=== PATIENT | female | born 1975 | race Caucasian/White ===

== ENCOUNTER → 2018-04-24 | Outpatient (CLI) | payer MEDICAID ==
--- NOTE | 2018-04-25 12:56 | MM ---
Reason for exam: screening (asymptomatic). Last mammogram was performed 2 years and 4 months ago. History: Family history of breast cancer in maternal aunt. Taking hormonal contraceptives for 19 years beginning at age 17. Physical Findings: A clinical breast exam by your physician is recommended on an annual basis and results should be correlated with mammographic findings. MG 3D Screening Mammo W/Cad Bilateral CC and MLO view(s) were taken. Prior study comparison: January 05, 2016, left breast MG work up mamm w CAD LT. December 29, 2015, bilateral MG screening mammo w CAD. The breast tissue is extremely dense which could obscure a lesion on mammography. Superior posterior depth left breast asymmetry overlying the pectoralis muscle on 3D MLO 42/65. ASSESSMENT: Incomplete: need additional imaging evaluation, BI-RAD 0 RECOMMENDATION: Special view mammogram of the left breast. If lesion persists on supplemental views, image directed ultrasound is recommended. [facility] will attempt to contact patient to return for supplemental views and ultrasound if indicated.
== END ==
LOC: RADMAMWWP 07:38
PROVIDERS: ATTEND Obstetrics & Gynecology
DX: Z12.31 Encounter for screening mammogram for malignant neoplasm of breast (principal)
CPT/HCPCS: 77063; 77067

== ENCOUNTER → 2018-04-29 | Outpatient (CLI) | payer MEDICAID ==
--- NOTE | 2018-04-30 08:34 | MM ---
Reason for exam: additional evaluation requested from abnormal screening. Last mammogram was performed less than 1 month ago. History: Family history of breast cancer in maternal aunt. Taking hormonal contraceptives for 19 years beginning at age 17. Physical Findings: Nurse did not find any significant physical abnormalities on exam. MG 3D Work Up W/Cad LT LM and spot compression MLO view(s) were taken of the left breast. Prior study comparison: April 24, 2018, bilateral MG 3d screening mammo w/cad. January 05, 2016, left breast MG work up mamm w CAD LT. Nodularity persists upper outer quadrant left breast, 8.3cm from nipple. These results were verbally communicated with the patient and result sheet given to the patient on 04/29/18. ASSESSMENT: Incomplete: need additional imaging evaluation, BI-RAD 0 RECOMMENDATION: Ultrasound of the left breast.
--- NOTE | 2018-04-30 08:35 | USB ---
Reason for exam: additional evaluation requested from abnormal screening. History: Family history of breast cancer in maternal aunt. Taking hormonal contraceptives for 19 years beginning at age 17. US Breast Workup Limited LT Left limited breast ultrasound including focal area of concern, retroareolar and axilla demonstrates a 0.3 x 0.2 x 0.3cm cystic lesion at 2 o'clock and a 0.4 x 0.3 x 0.5cm mixed lesion at 2 o'clock. These results were verbally communicated with the patient and result sheet given to the patient on 04/29/18. ASSESSMENT: Probably benign, BI-RAD 3 RECOMMENDATION: Follow-up diagnostic mammogram and ultrasound of the left breast in 6 months.
== END ==
LOC: RADMAMWWP 14:48
PROVIDERS: ATTEND Obstetrics & Gynecology
DX: R92.8 Other abnormal and inconclusive findings on diagnostic imaging of breast (principal)
CPT/HCPCS: 77061; 77065

== ENCOUNTER 2018-12-27 19:15 | Emergency (ER) | payer MEDICAID ==
[2018-12-27 19:25] VITALS: BP 156/88; PULSE 68; RESP 20; TEMP 98.6
--- NOTE | 2018-12-27 20:08 | ED ---
General Adult HPI - General Chief complaint: Wound/Laceration Stated complaint: thumb lac Source: patient, RN notes reviewed Mode of arrival: ambulatory Limitations: no limitations - History of Present Illness Initial comments: Chief complaint history of present illness a 43-year-old female presents emergency room with a one half centimeter laceration over the tip of her right thumb. Full range of motion. Last tetanus shot was 5 years ago. No complaint of numbness or tingling - Related Data Home Medications Medication Instructions Recorded Confirmed Escitalopram [Lexapro] 10 mg PO DAILY 12/27/18 12/27/18 Norgestrel-Ethinyl Estradiol 1 tab PO DAILY 12/27/18 12/27/18 [Ocy-Igrivzbh-15 Tablet] Allergies Allergy/AdvReac Type Severity Reaction Status Date / Time No Known Allergies Allergy Verified 12/27/18 19:25 Review of Systems ROS Statement: Those systems with pertinent positive or pertinent negative responses have been documented in the HPI. Review of systems. No other complaint other than laceration to the tip of her right thumb. Past medical problems surgeries include a . ALLERGIES none known. Last tetanus shot 5 years ago. ROS Other: All systems not noted in ROS Statement are negative. Past Medical History Past Medical History: No Reported History History of Any Multi-Drug Resistant Organisms: None Reported Past Surgical History: Section Past Psychological History: No Psychological Hx Reported Smoking Status: Never smoker Past Alcohol Use History: None Reported Past Drug Use History: None Reported General Exam - General Exam Comments Initial Comments: Exam pertinent to the patient's visit ; vital signs temp 98.6 pulse 68 respiratory rate 20 blood pressure 156/88. Pulse ox 97% room air Patient is left-hand dominant. No evidence of any vascular compromise. No complaint of numbness or tingling. Examination of the right thumb finds a laceration through the tuft of the finger. Full range of motion, neurovascular status intact distally. The plan patient with 1% Xylocaine used to numb the finger. The finger is soaked in dilute Betadine normal saline with good effect. The patient's tetanus shot is up-to-date. The patient be advised to return in 10 days to have the sutures removed or earlier should be signs of infection. Limitations: no limitations Course Vital Signs 12/27/18 19:23 Temperature 98.6 F Pulse Rate 68 Respiratory 20 Rate Blood Pressure 156/88 O2 Sat by Pulse 97 Oximetry Procedures - Procedures Initial comment: Procedure; laceration repair. 1/2 cm, tip of right thumb. Wound cleaned and explored no evidence of any foreign body. Wound edges approximated with 3 sutures of 3-0 nylon interrupted mattress. Bandage applied. Patient returned 10 days for suture to be removed. Medical Decision Making - Medical Decision Making Medical decision making; 1-1/2 cm laceration tip of nondominant right thumb. Cleaned, sutured. Disposition Clinical Impression: Laceration of thumb Disposition: HOME SELF-CARE Condition: Good Instructions (If sedation given, give patient instructions): Finger Laceration (ED) Additional Instructions: Return in 10 days for sutures to be removed. Return if there are any signs of infection. Otherwise follow-up with family physician as needed Is patient prescribed a controlled substance at d/c from ED?: No Referrals: Eyal Tiwari DO [Primary Care Provider] - 1-2 days Time of Disposition: 20:07
[2018-12-27] MEDS ORDERED: LIDOCAINE 1% INJ 10MG/ML (20 ML MDV) SQ ONE (20:28)
== END 2018-12-27 20:30 | disposition home or self-care (01) ==
LOC: EC 19:15
DX: S61.011A Laceration without foreign body of right thumb without damage to nail, initial encounter (principal); Z79.3 Long term (current) use of hormonal contraceptives; Z79.899 Other long term (current) drug therapy; W25.XXXA Contact with sharp glass, initial encounter
CPT/HCPCS: 99282; 12001; J2001

== ENCOUNTER → 2019-12-05 | Outpatient (CLI) | payer MEDICAID ==
--- NOTE | 2019-12-09 08:19 | MM ---
Reason for exam: screening (asymptomatic). Last mammogram was performed 1 year and 7 months ago. History: Family history of breast cancer in maternal aunt. Taking hormonal contraceptives for 19 years beginning at age 17. Physical Findings: A clinical breast exam by your physician is recommended on an annual basis and results should be correlated with mammographic findings. MG 3D Screening Mammo W/Cad Bilateral CC and MLO view(s) were taken. Prior study comparison: April 29, 2018, left breast MG 3d work up w/cad LT. April 24, 2018, bilateral MG 3d screening mammo w/cad. The breast tissue is extremely dense which could obscure a lesion on mammography. There is no discrete abnormality. ASSESSMENT: Negative, BI-RAD 1 RECOMMENDATION: Routine screening mammogram of both breasts in 1 year.
== END | disposition home or self-care (01) ==
LOC: RADMAMWWP 16:19
PROVIDERS: ATTEND Family Medicine
DX: Z12.31 Encounter for screening mammogram for malignant neoplasm of breast (principal); Z80.3 Family history of malignant neoplasm of breast
CPT/HCPCS: 77063; 77067

== ENCOUNTER → 2020-05-13 | Outpatient (CLI) | payer MEDICAID | END | disposition home or self-care (01) | LOC: LABWHC1 12:39 | PROVIDERS: ATTEND Pediatrics Pediatric Infectious Diseases | DX: Z03.818 Encounter for observation for suspected exposure to other biological agents ruled out (principal) | CPT/HCPCS: 87635; C9803 ==

== ENCOUNTER → 2020-05-31 | Outpatient (CLI) | payer MEDICAID ==
[2020-05-31 12:49] LABS: HCT 40.6 % (34.0-46.0); HGB 13.8 gm/dL (11.4-16.0); MCH 31.3 pg (25.0-35.0); MCV 92.1 fL (80.0-100.0); Mean Platelet Volume 6.8; Platelet Count 353 k/uL (150-450); RBC 4.41 m/uL (3.80-5.40); RDW 11.8 % (11.5-15.5); WBC 9.7 k/uL (3.8-10.6)
[2020-05-31 18:31] LABS: African American GFR (CKD) 78.2 (60.0-200.0); Albumin 4.3 g/dL (3.80-4.90); Albumin/Globulin Ratio 1.59 (1.60-3.17); Anion Gap 7.5 mmol/L (4.00-12.00); Calcium 9.6 mg/dL (8.7-10.3); Carbon Dioxide 26.5 mmol/L (21.6-31.8); Globulin 2.7 g/dL (1.6-3.3); Non-African American GFR(CKD) 67.5 (60.0-200.0); Potassium 3.7 mmol/L (3.5-5.5); Total Bilirubin 0.6 mg/dL (0.3-1.2)
[2020-05-31 18:40] LABS: Estradiol 85.8 pg/mL; Follicle Stimulating Hormone 3.4 mIU/mL
[2020-05-31 22:20] LABS: Thyroid Peroxidase Antibodies <28.0 U/mL (0.0-60.0)
== END | disposition home or self-care (01) ==
LOC: LABWHC1 10:09
PROVIDERS: ATTEND Obstetrics & Gynecology
DX: R14.0 Abdominal distension (gaseous) (principal); R53.83 Other fatigue; R45.4 Irritability and anger; G47.00 Insomnia, unspecified; R51.9 Headache, unspecified
CPT/HCPCS: 36415; 80053; 82306; 82607; 82670; 83001; 84144; 84403; 84443; 84481; 85027; 86376

== ENCOUNTER → 2021-04-04 | Outpatient (CLI) | payer MEDICAID ==
[2021-04-04 11:41] LABS: HCT 39.7 % (37.2-46.3); HGB 13.1 g/dL (12.0-15.0); MCH 30.9 pg (27.0-32.0); MCV 93.6 fL (80.0-97.0); Platelet Count 335 X 10*3/uL (140-440); RBC 4.24 X 10*6/uL (4.10-5.20); RDW 12.2 % (11.5-14.5); WBC 6.27 X 10*3/uL (4.50-10.00)
[2021-04-04 13:42] LABS: T4, Free (Free Thyroxine) 1.1 ng/dL (0.80-1.80)
[2021-04-04 17:59] LABS: African American GFR (CKD) 88.9 (60.0-200.0); Albumin 4.1 g/dL (3.80-4.90); Albumin/Globulin Ratio 1.46 (1.60-3.17); Anion Gap 10.1 mmol/L (4.00-12.00); BUN/Creat Ratio 25.56 Ratio (12.00-20.00); Calcium 9.1 mg/dL (8.7-10.3); Carbon Dioxide 21.9 mmol/L (21.6-31.8); Chol/HDL Ratio 3.24; Globulin 2.8 g/dL (1.6-3.3); LDL Cholesterol,Calculated 106.8 mg/dL (0.0-131.0); Non-African American GFR(CKD) 76.7 (60.0-200.0); Potassium 4.9 mmol/L (3.5-5.5); Total Bilirubin 0.6 mg/dL (0.2-1.2); Total Protein 6.9 g/dL (6.2-8.2); VLDL Calculation 25.2 mg/dL (5.00-40.00)
== END | disposition home or self-care (01) ==
LOC: LABWHC1 07:11
PROVIDERS: ATTEND Family Medicine
DX: E55.9 Vitamin D deficiency, unspecified (principal); H40.9 Unspecified glaucoma
CPT/HCPCS: 36415; 80053; 80061; 82306; 84439; 84443; 85027

== ENCOUNTER → 2021-07-04 | Outpatient (CLI) | payer MEDICAID | END | disposition home or self-care (01) | LOC: LABWHC1 14:45 | PROVIDERS: ATTEND Emergency Medicine | DX: Z20.822 Contact with and (suspected) exposure to COVID-19 (principal) | CPT/HCPCS: 87635 ==

== ENCOUNTER → 2021-07-05 | Outpatient (CLI) | payer MEDICAID, OTHER | END | disposition home or self-care (01) | LOC: LABWHC1 16:01 | PROVIDERS: ATTEND Emergency Medicine | DX: Z20.822 Contact with and (suspected) exposure to COVID-19 (principal) | CPT/HCPCS: 87635 ==

== ENCOUNTER → 2021-07-08 | Outpatient (CLI) | payer MEDICAID ==
--- NOTE | 2021-07-11 10:03 | MM ---
Reason for exam: screening (asymptomatic). Last mammogram was performed 1 year and 7 months ago. History: Family history of breast cancer in maternal aunt. Taking hormonal contraceptives for 19 years beginning at age 17. Physical Findings: A clinical breast exam by your physician is recommended on an annual basis and results should be correlated with mammographic findings. MG 3D Screening Mammo W/Cad Bilateral CC and MLO view(s) were taken. Prior study comparison: December 05, 2019, bilateral MG 3d screening mammo w/cad. April 24, 2018, bilateral MG 3d screening mammo w/cad. The breast tissue is extremely dense which could obscure a lesion on mammography. There is no discrete abnormality. ASSESSMENT: Negative, BI-RAD 1 RECOMMENDATION: Routine screening mammogram of both breasts in 1 year.
== END | disposition home or self-care (01) ==
LOC: RADMAMWWP 07:46
PROVIDERS: ATTEND Obstetrics & Gynecology
DX: Z12.31 Encounter for screening mammogram for malignant neoplasm of breast (principal); Z80.3 Family history of malignant neoplasm of breast
CPT/HCPCS: 77063; 77067

== ENCOUNTER 2024-01-01 16:00 | Inpatient (IN) | payer BC, MEDICAID ==
[2024-01-01] MEDS: LORazepam 2 MG/ML INJ IV STA ×2 (16:28→17:54)
[2024-01-01] MEDS: SODIUM CHLORIDE 0.9% 1,000 ML IV STA (16:36)
[2024-01-01 16:37] LABS: Glucose,Whole Blood 104 mg/dL (70-110)
--- NOTE | 2024-01-01 17:04 | CT ---
EXAMINATION TYPE: CT brain wo con CT DLP: 1172.6 mGycm, Automated exposure control for dose reduction was used. DATE OF EXAM: 01/01/2024 4:46 PM COMPARISON: 05/21/2020 14. CLINICAL INDICATION:Female, 48 years old with history of seizure activity, Seizure activity. code str [id number] TECHNIQUE: Brain: Axial CT images of the brain were obtained with coronal and sagittal reformats created and rev iewed. Contrast used: None. Oral contrast used: None. FINDINGS: Brain: Extra-axial spaces: No abnormal extra-axial fluid collections. Ventricular system: Within normal limits Cerebral parenchyma: No acute intraparenchymal hemorrhage or mass effect. The godfrey-white junction is well differentiated. Cerebellum: Unremarkable. Mass effect: No evidence of midline shift. Intracranial vasculature: unremarkable Soft tissues: Normal. Calvarium/osseous structures: No depressed skull fracture. Paranasal sinuses and mastoid air cells: Mild scattered paranasal sinus disease. Visualized orbits: Orbital contents are intact. IMPRESSION: No acute intracranial process.
[2024-01-01] MEDS: levETIRAcetam IV 1,500 MG in SODIUM CHLORIDE 0.9% 250 ML IVPB ONE (17:05)
[2024-01-01 17:11] LABS: Basophils # (A) 0.1 k/uL (0-0.2); Basophils % (A) 1 %; Eosinophils # (A) 0.4 k/uL (0-0.7); Eosinophils % (A) 4 %; HCT 42.3 % (34.0-46.0); HGB 13.9 gm/dL (11.4-16.0); Lymphocytes # (A) 2.8 k/uL (1.0-4.8); Lymphocytes % (A) 29 %; MCH 31.4 pg (25.0-35.0); MCHC 32.9 g/dL (31.0-37.0); MCV 95.5 fL (80.0-100.0); Mean Platelet Volume 7.2; Monocytes # (A) 0.6 k/uL (0-1.0); Monocytes % (A) 6 %; Neutrophils # (A) 5.6 k/uL (1.3-7.7); Neutrophils % (A) 58 %; Platelet Count 331 k/uL (150-450); RBC 4.43 m/uL (3.80-5.40); WBC 9.7 k/uL (3.8-10.6)
--- NOTE | 2024-01-01 17:26 | ED ---
General Adult HPI - General Chief complaint: Seizure Stated complaint: Seizure Time Seen by Provider: 01/01/24 16:08 Source: patient, EMS, RN notes reviewed, old records reviewed Mode of arrival: EMS Limitations: no limitations - History of Present Illness Initial comments: 48 female presenting with seizure-like activity. This was witnessed by paramedi cs during transport, multiple episodes of focal seizure affecting the left side of the body. Patient was jerking. She was alert during these episodes without change in her level of consciousness. She has no prior seizure history. She has no TIA or CVA history. Patient is otherwise quite healthy. - Related Data Home Medications Medication Instructions Recorded Confirmed Escitalopram [Lexapro] 10 mg PO DAILY 12/27/18 01/01/24 Latanoprost [Latanoprost 0.005%] 1 drop BOTH EYES HS 01/01/24 01/01/24 Rosuvastatin [Crestor] 20 mg PO DAILY 01/01/24 01/01/24 Allergies Allergy/AdvReac Type Severity Reaction Status Date / Time No Known Allergies Allergy Verified 12/27/18 19:25 Review of Systems ROS Statement: Those systems with pertinent positive or pertinent negative responses have been documented in the HPI. ROS Other: All systems not noted in ROS Statement are negative. Past Medical History Past Medical History: Hyperlipidemia History of Any Multi-Drug Resistant Organisms: None Reported Past Surgical History: Section Past Psychological History: Anxiety Past Alcohol Use History: None Reported Past Drug Use History: None Reported General Exam General appearance: alert, in no apparent distress Head exam: Present: atraumatic, normocephalic Eye exam: Present: normal appearance, PERRL, EOMI Neck exam: Present: normal inspection. Absent: tenderness, meningismus Respiratory exam: Present: normal lung sounds bilaterally. Absent: respiratory distress, wheezes, rales Cardiovascular Exam: Present: regular rate, normal rhythm GI/Abdominal exam: Present: soft. Absent: distended, tenderness, guarding, rebound Extremities exam: Present: normal inspection, normal capillary refill Neurological exam: Present: alert, oriented X3, CN II-XII intact, motor sensory deficit (NIH of 2, left arm and left leg drift) Psychiatric exam: Present: normal affect, normal mood Skin exam: Present: warm, dry, intact Course Vital Signs 06/25/24 06/25/24 06/25/24 16:03 17:05 18:05 Temperature 97.8 F 98.8 F Pulse Rate 89 86 80 Respiratory 16 16 18 Rate Blood Pressure 129/83 134/85 128/88 O2 Sat by Pulse 98 97 98 Oximetry Medical Decision Making - Medical Decision Making Was pt. sent in by a medical professional or institution (CHERY Jha, CREDIT AUTHORIZER, urgent care, hospital, or intermediate...) When possible be specific @ -No Did you speak to anyone other than the patient for history (EMS, parent, family, police, friend...)? What history was obtained from this source @ -No Did you review nursing and triage notes (agree or disagree)? Why? @ -I reviewed and agree with nursing and triage notes Were old charts reviewed (outside hosp., previous admission, EMS record, old EKG, old radiological studies, urgent care reports/EKG's, intermediate records)? Report findings @ -No old charts were reviewed Differential Seizure: Recurrent seizure disorder, febrile seizure, alcohol withdrawal, stimulants, meningitis, encephalitis, intercranial hemorrhage, intracranial tumor, stroke, eclampsia, thyrotoxicosis, hypocalcemia, hyponatremia, hypernatremia, hypomagnesemia, psychogenic, this is not meant to be an all-inclusive list. EKG interpreted by me (3pts min.). @ -[Sinus rhythm rate of 99, NM interval 152, QRS duration 96, QTc [address] segment elevation X-rays interpreted by me (1pt min.). @ -None done CT interpreted by me (1pt min.). @ -CT brain and CT angiography are negative. U/S interpreted by me (1pt. min.). @ -None done What testing was considered but not performed or refused? (CT, X-rays, U/S, labs)? Why? @ -None What meds were considered but not given or refused? Why? @ -None Did you discuss the management of the patient with other professionals (professionals i.e. CHERY Jha, CREDIT AUTHORIZER, lab, RT, psych nurse, health care social worker, digital solutions architect, teacher, anti air warfare operations officer, caseworker protective services)? Give summary @ -Discussed case with Dr. Lopez, for stroke and with Dr. Mason covering for neurology as well as the admitting team [facility] covered by [place] Was smoking cessation discussed for >3mins.? @ -No Was critical care preformed (if so, how long)? @ -[yes 35 min Were there social determinants of health that impacted care today? How? (Homelessness, low income, unemployed, alcoholism, drug addiction, transportation, low edu. Level, literacy, decrease access to med. care, residential, rehab)? @ -No Was there de-escalation of care discussed even if they declined (Discuss DNR or withdrawal of care, Hospice)? DNR status @ -No What co-morbidities impacted this encounter? (DM, HTN, Smoking, COPD, CAD, Cancer, CVA, ARF, Chemo, Hep., AIDS, mental health diagnosis, sleep apnea, morbid obesity)? @ -None Was patient admitted / discharged? Hospital course, mention meds given and route, prescriptions, significant lab abnormalities, going to OR and other pertinent info. @48-year-old female presenting with like activity. Patient has several episodes of jerking movements and left sided suspected focal seizure. She does progressed to tonic-clonic seizure with altered level of consciousness. This lasted approximately 1 minute. She is given Keppra, Ativan in the emergency department. She had been given Versed by paramedics prior to arrival. She has no prior history of seizure activity. The left-sided weakness and drift with an NIH of 2 this was a stroke activation. Recommended treatment of seizure at this time with likely Perry's paralysis by the stroke interventional physician Dr. Lopez, patient has a lactic of 4 consistent with seizure. Other laboratory testing is unremarkable. CT and CT angiography are unremarkable. Patient will be admitted with seizure precautions, consult to Dr. Mason for evaluation. EEG and MRI have been ordered. Undiagnosed new problem with uncertain prognosis? @ -No Drug Therapy requiring intensive monitoring for toxicity (Heparin, Nitro, Insulin, Cardizem)? @ -No Were any procedures done? @ -No Diagnosis/symptom? @ -[seizure, R/O CVA Acute, or Chronic, or Acute on Chronic? @ -Acute Uncomplicated (without systemic symptoms) or Complicated (systemic symptoms)? @ -[default Side effects of treatment? @ -No Exacerbation, Progression, or Severe Exacerbation? @ -No Poses a threat to life or bodily function? How? (Chest pain, USA, HI, pneumonia, PE, COPD, DKA, ARF, appy, cholecystitis, CVA, Diverticulitis, Homicidal, Suicidal, threat to staff... and all critical care pts) @ -[yes, seizure new onset - Lab Data Result diagrams: 01/01/24 16:33 01/01/24 18:00 Lab Results 01/01/24 01/01/24 01/01/24 Range/Units 16:33 16:34 16:47 WBC 9.7 (3.8-10.6) k/uL RBC 4.43 (3.80-5.40) m/uL Hgb 13.9 (11.4-16.0) gm/dL Hct 42.3 (34.0-46.0) % MCV 95.5 (80.0-100.0) fL MCH 31.4 (25.0-35.0) pg MCHC 32.9 (31.0-37.0) g/dL RDW 12.0 (11.5-15.5) % Plt Count 331 (150-450) k/uL MPV 7.2 Neutrophils % 58 % Lymphocytes % 29 % Monocytes % 6 % Eosinophils % 4 % Basophils % 1 % Neutrophils # 5.6 (1.3-7.7) k/uL Lymphocytes # 2.8 (1.0-4.8) k/uL Monocytes # 0.6 (0-1.0) k/uL Eosinophils # 0.4 (0-0.7) k/uL Basophils # 0.1 (0-0.2) k/uL Sodium (137-145) mmol/L Potassium (3.5-5.1) mmol/L Chloride (98-107) mmol/L Carbon Dioxide (22-30) mmol/L Anion Gap mmol/L BUN (7-17) mg/dL Creatinine (0.52-1.04) mg/dL Est GFR (CKD-EPI)AfAm (>60 ml/min/1.73 sqM) Est GFR (CKD-EPI)NonAf (>60 ml/min/1.73 sqM) Glucose (74-99) mg/dL POC Glucose (mg/dL) 104 (70-110) mg/dL POC Glu Veterinary Manager ID Christianne Tavera Plasma Lactic Acid Raymon 4.0 H* (0.7-2.0) mmol/L Calcium (8.4-10.2) mg/dL Magnesium (1.6-2.3) mg/dL Total Bilirubin (0.2-1.3) mg/dL AST (14-36) U/L ALT (4-34) U/L Alkaline Phosphatase (38-126) U/L Total Protein (6.3-8.2) g/dL Albumin (3.5-5.0) g/dL Urine Color Urine Appearance (Clear) Urine pH (5.0-8.0) Ur Specific [place] (1.001-1.035) Urine Protein (Negative) Urine Glucose (UA) (Negative) Urine Ketones (Negative) Urine Blood (Negative) Urine Nitrite (Negative) Urine Bilirubin (Negative) Urine Urobilinogen (<2.0) mg/dL Ur Leukocyte Esterase (Negative) 01/01/24 01/01/24 Range/Units 17:30 18:00 WBC (3.8-10.6) k/uL RBC (3.80-5.40) m/uL Hgb (11.4-16.0) gm/dL Hct (34.0-46.0) % MCV (80.0-100.0) fL MCH (25.0-35.0) pg MCHC (31.0-37.0) g/dL RDW (11.5-15.5) % Plt Count (150-450) k/uL MPV Neutrophils % % Lymphocytes % % Monocytes % % Eosinophils % % Basophils % % Neutrophils # (1.3-7.7) k/uL Lymphocytes # (1.0-4.8) k/uL Monocytes # (0-1.0) k/uL Eosinophils # (0-0.7) k/uL Basophils # (0-0.2) k/uL Sodium 137 (137-145) mmol/L Potassium 3.8 (3.5-5.1) mmol/L Chloride 111 H (98-107) mmol/L Carbon Dioxide 22 (22-30) mmol/L Anion Gap 4 mmol/L BUN 14 (7-17) mg/dL Creatinine 0.61 (0.52-1.04) mg/dL Est GFR (CKD-EPI)AfAm >90 (>60 ml/min/1.73 sqM) Est GFR (CKD-EPI)NonAf >90 (>60 ml/min/1.73 sqM) Glucose 92 (74-99) mg/dL POC Glucose (mg/dL) (70-110) mg/dL POC Glu Veterinary Manager ID Plasma Lactic Acid Raymon (0.7-2.0) mmol/L Calcium 8.4 (8.4-10.2) mg/dL Magnesium 1.7 (1.6-2.3) mg/dL Total Bilirubin 0.3 (0.2-1.3) mg/dL AST 27 (14-36) U/L ALT 20 (4-34) U/L Alkaline Phosphatase 63 (38-126) U/L Total Protein 6.1 L (6.3-8.2) g/dL Albumin 3.3 L (3.5-5.0) g/dL Urine Color Yellow Urine Appearance Clear (Clear) Urine pH 6.0 (5.0-8.0) Ur Specific [place] 1.039 H (1.001-1.035) Urine Protein Negative (Negative) Urine Glucose (UA) Negative (Negative) Urine Ketones Negative (Negative) Urine Blood Negative (Negative) Urine Nitrite Negative (Negative) Urine Bilirubin Negative (Negative) Urine Urobilinogen <2.0 (<2.0) mg/dL Ur Leukocyte Esterase Negative (Negative) Critical Care Time Critical Care Time: Yes Total Critical Care Time: 35 Disposition Clinical Impression: New onset seizure Disposition: ADMITTED IP TO THIS [facility] Condition: Stable Instructions (If sedation given, give patient instructions): Seizure/Epilepsy Discharge Instructions & Follow-Up Is patient prescribed a controlled substance at d/c from ED?: No Referrals: Charly Blount DO [Primary Care Provider] - 1-2 days Time of Disposition: 19:10
--- NOTE | 2024-01-01 17:28 | CT ---
EXAMINATION TYPE: CT angio head neck CT DLP: 436.4 mGycm, Automated exposure control for dose reduction was used. DATE OF EXAM: 01/01/2024 5:04 PM COMPARISON: [id number] CLINICAL INDICATION:Female, 48 years old with history of Seizure left arm drift; PHH, Seizure activit y. code stroke TECHNIQUE: Axially acquired helical CT angiogram of the head and neck was obtained with contrast. Axi al images are supplemented with 3D reconstructions and MIP images which were post-processed at an in dependent workstation. NASCET criteria used. Contrast used:65ml mL of Isovue 370 with IV Contrast, Oral contrast used: None. FINDINGS: CTA HEAD: No evidence of acute intracranial hemorrhage, mass effect, or midline shift. The ventricles, sulci, a nd cisterns are unremarkable. The visualized portions of the internal carotid arteries, middle cerebral arteries, anterior cerebral arteries, and posterior cerebral arteries are patent. The basilar and vertebral arteries are patent. CTA NECK: Right Carotid System: The common carotid artery and external carotid artery are patent. The carotid bifurcation demonstrate s no evidence of hemodynamically significant stenosis. The remaining portions of the internal carotid artery demonstrate normal size without significant narrowing. Left Carotid System: The common carotid artery and external carotid artery are patent. The carotid bifurcation demonstrate s no evidence of hemodynamically significant stenosis. The remaining portions of the internal carotid artery demonstrate normal size without significant narrowing. Vertebral arteries are patent without evidence hemodynamically significant stenosis. There is a three-vessel aortic arch. The origins of the great vessels are patent. No evidence of hemo dynamically significant stenosis. Upper thorax: IMPRESSION: 1. No evidence of dissection of the cervical internal carotid arteries or vertebral arteries or any e vidence of significant stenosis at the carotid bifurcations. 2. No evidence of intracranial high-grade stenosis or intracranial aneurysm.
[2024-01-01 17:51] LABS: Appearance,Urine Clear (Clear); Bilirubin,Urine Negative (Negative); Blood,Urine Negative (Negative); Color,Urine Yellow; Glucose,Urine (UA) Negative (Negative); Ketones,Urine Negative (Negative); Leukocyte Esterase,Urine Negative (Negative); Nitrite,Urine Negative (Negative); Protein,Urine Negative (Negative); Specific Gravity,Urine 1.039 (1.001-1.035); Urobilinogen,Urine <2.0 mg/dL (<2.0)
[2024-01-01] MEDS: ASPIRIN 325 MG TAB PO STA (18:06)
[2024-01-01] MEDS: SODIUM CHLORIDE 0.9% 1,000 ML IV SCH (18:17)
[2024-01-01 18:43] LABS: ALT 20 U/L (4-34); AST 27 U/L (14-36); African American GFR (CKD) >90 (>60 ml/min/1.73 sqM); Albumin 3.3 g/dL (3.5-5.0); Alkaline Phosphatase 63 U/L (38-126); Anion Gap 4 mmol/L; Blood Urea Nitrogen 14 mg/dL (7-17); Calcium 8.4 mg/dL (8.4-10.2); Carbon Dioxide 22 mmol/L (22-30); Chloride 111 mmol/L (98-107); Glucose 92 mg/dL (74-99); Magnesium 1.7 mg/dL (1.6-2.3); Non-African American GFR(CKD) >90 (>60 ml/min/1.73 sqM); Potassium 3.8 mmol/L (3.5-5.1); Sodium 137 mmol/L (137-145); Total Bilirubin 0.3 mg/dL (0.2-1.3); Total Protein 6.1 g/dL (6.3-8.2)
[2024-01-01] MEDS: levETIRAcetam 500 MG TAB PO SCH (22:57)
[2024-01-02] MEDS: LORazepam 2 MG/ML INJ IV PRN ×2 (07:16→09:50)
--- NOTE | 2024-01-02 07:47 | P.HPIM ---
History of Present Illness Patient is a pleasant 48 years old female with no significant past medical history, and no previous history of seizure. Presents because of jerking movement in the left side and sometimes also on the right side. Patient was fully awake and oriented when the seizure happened. at bedside also on help with history As per patient had 3 episodes of the seizures that lasted for about 30 seconds over 1 hour. So they called 911 and came to emergency room here in the emergency room had total about 10 of the seizures mainly on the left side but sometimes also on the right arm move the right leg gets stiff but more on the left side as per patient and . All the time no loss of consciousness no headache or dizziness. Last night she was started on Keppra 500 mg twice a day and she got 1 dose last night This morning she had another seizure around 7:16 AM she received another dose of Ativan 2 mg x 1 and seizure stopped. I saw the patient immediately after, she was fully awake and oriented to time place person place person, she looks little tired and dizzy and drowsy from the Ativan. Her left side looks mildly weak compared to the right side but thought also this could be limited due to her pain and tenderness. Also she had mild facial deviation to the left side. Patient still denies headache, no neck pain or stiffness. No fever or chills She denies chest pain dyspnea. Occasional coughing. She has little suprapubic pain for a week but no dysuria or urgency, no flank pain. No diarrhea and she has normal bowel movement this morning and no vomiting. She denies smoking or illicit drugs, she drinks alcohol occasionally. Her PCP is Dr. Jha. She sees a wall washer because for regular checkup after her mother was sick. She is currently on aspirin 81 mg and she was taking at home, also she is on a statin and Lexapro. She is not on any seizure medication and she never had seizure before or other neurological problem. She is hemodynamically stable and afebrile. Labs reviewed showing unremarkable CBC, BMP, liver enzymes lactic acid was elevated 4.0 came back to reference range at 1.4. Urine analysis is normal EKG showing sinus rhythm at [address]-T changes CT of the brain is negative for acute process CTA of the head and neck also showing no acute process. No significant stenosis or dissection EEG and MRI of the brain was ordered and neurologist was consulted and patient was started on normal saline 75 mL/h and increased aspirin to 325 mg daily Review of Systems Review of systems CONSTITUTIONAL: No fever, no malaise, no fatigue. HEENT: No recent visual problems or hearing problems. Denied any sore throat. CARDIOVASCULAR: No orthopnea, PND, no palpitations, no syncope. PULMONARY: No shortness of breath, no cough, no hemoptysis. GASTROINTESTINAL: No diarrhea, no nausea, no vomiting, no abdominal pain. Normoactive bowel sounds. NEUROLOGICAL: No headaches, no weakness, no numbness. HEMATOLOGICAL: Denies any bleeding or petechiae. GENITOURINARY: Denies any burning micturition, frequency, or urgency. MUSCULOSKELETAL/RHEUMATOLOGICAL: Denies any joint pain, swelling, or any muscle pain. ENDOCRINE: Denies any polyuria or polydipsia. Past Medical History Past Medical History: Hyperlipidemia History of Any Multi-Drug Resistant Organisms: None Reported Past Surgical History: Section Past Psychological History: Anxiety Past Alcohol Use History: None Reported Past Drug Use History: None Reported Medications and Allergies Home Medications Medication Instructions Recorded Confirmed Type Escitalopram [Lexapro] 10 mg PO DAILY 12/27/18 01/01/24 History Latanoprost [Latanoprost 0.005%] 1 drop BOTH EYES HS 01/01/24 01/01/24 History Rosuvastatin [Crestor] 20 mg PO DAILY 01/01/24 01/01/24 History Allergies Allergy/AdvReac Type Severity Reaction Status Date / Time No Known Allergies Allergy Verified 12/27/18 19:25 Physical Exam Vitals: Vital Signs Temp Pulse Resp BP Pulse Ox 01/02/24 07:16 105 H 20 129/90 98 01/02/24 05:59 67 18 107/63 96 01/02/24 02:00 59 L 18 105/77 96 01/01/24 22:59 84 18 102/53 97 01/01/24 18:05 98.8 F 80 18 128/88 98 01/01/24 17:05 86 16 134/85 97 01/01/24 16:03 97.8 F 89 16 129/83 98 Intake and Output 01/01/24 01/02/24 01/02/24 22:59 06:59 14:59 Other: Weight 67.132 kg GENERAL: The patient is alert and oriented x3, not in any acute distress. Well developed, well nourished. HEENT: Pupils are round and equally reacting to light. EOMI. No scleral icterus. No conjunctival pallor. Normocephalic, atraumatic. No pharyngeal erythema. No thyromegaly. CARDIOVASCULAR: S1 and S2 present. No murmurs, rubs, or gallops. PULMONARY: Chest is clear to auscultation, no wheezing , no crackles. ABDOMEN: Soft, nontender, nondistended, normoactive bowel sounds. No palpable organomegaly. MUSCULOSKELETAL: No joint swelling or deformity. EXTREMITIES: No cyanosis, clubbing, or pedal edema. -NEUROLOGICAL: Patient seen immediately after the seizure, she was fully awake a nd oriented with no neck stiffness. She has mild left-sided facial deviation. Monitor is 4+/5 on the right side and 5/5 on the left side. Sensation intact. Meningeal signs are absent SKIN: No rashes. no petechiae. Results CBC & Chem 7: 01/01/24 16:33 01/01/24 18:00 Labs: Abnormal Lab Results - Last 24 Hours (Table) 01/01/24 01/01/24 01/01/24 Range/Units 16:47 17:30 18:00 Chloride 111 H (98-107) mmol/L Plasma Lactic Acid Raymon 4.0 H* (0.7-2.0) mmol/L Total Protein 6.1 L (6.3-8.2) g/dL Albumin 3.3 L (3.5-5.0) g/dL Ur Specific [place] 1.039 H (1.001-1.035) Assessment and Plan Assessment: New onset seizure, Starts on the left side and small goes sometimes to the right side, without loss of consciousness. Suspicion of left-sided hemiparesis and left facial division, could be related to above Perry's paralysis. Rule out stroke. Left leg pain and tenderness, could be related to seizure above. Rule out DVT Hyperlipidemia Plan: Patient already started on Keppra Ativan as needed Neurology consult MRI of the brain and EEG are pending Check ultrasound of the left leg Continue with normal saline Continue with aspirin 325 mg Labs and medication were reviewed.. Continue same treatment. Continue with s ymptomatic treatment. Resume home medication. Monitor labs and vitals. DVT and GI prophylaxis. Further recommendations as per clinical course of the patient DVT prophylaxis: Subcutaneous heparin GI Prophylaxis: Pepcid PT/OT: Pending Prognosis is guarded
--- NOTE | 2024-01-02 08:17 | US ---
EXAMINATION TYPE: US venous doppler duplex LE LT DATE OF EXAM: 01/02/2024 7:46 AM COMPARISON: NONE CLINICAL INDICATION: Female, 48 years old with history of r/o dvt, pain; muscle spasms LLE x 1 day SIDE PERFORMED: Left TECHNIQUE: The lower extremity deep venous system is examined utilizing real time linear array sonog dimitris with graded compression, doppler sonography and color-flow sonography. VESSELS IMAGED: Common Femoral Vein Deep Femoral Vein Greater Saphenous Vein * Femoral Vein Popliteal Vein Small Saphenous Vein * Proximal Calf Veins (* superficial vessels) Right Leg: NA Left Leg: Negative for DVT IMPRESSION: Grayscale, color doppler, spectral doppler imaging performed of the deep veins of the lo wer extremities. There is normal flow, compressibility, vascular waveforms.
[2024-01-02] MEDS: ASPIRIN 325 MG TAB PO SCH (08:41)
[2024-01-02] MEDS: ATORVASTATIN 40 MG TAB PO SCH (08:41)
[2024-01-02] MEDS: levETIRAcetam IV 500 MG/5 ML VIAL IVP STA (09:46)
[2024-01-02] MEDS: ONDANSETRON 4 MG/2 ML VIAL IVP PRN (10:30)
[2024-01-02 12:45] LABS: Glucose,Whole Blood 105 mg/dL (70-110)
[2024-01-02] MEDS: Lacosamide IV (ages 17+ yrs) 200 MG/20 ML ML IVP SCH (13:34)
--- NOTE | 2024-01-02 13:48 | P.CNNES ---
History of Present Illness Consult date: 01/02/24 Requesting physician: Akin Rodríguez Reason for Consult: Seizure History of Present Illness: Patient is a 48-year-old left-handed female with history of anxiety disorder, came to the hospital by ambulance yesterday at 4 PM for new onset seizure. Yesterday at around 2 PM she started with having seizure, in which her left arm will start shaking, then her legs would shake, and she does not lose consciousness during these event. The episode lasted for about 30 seconds to a minute. Patient did not lose control of urine, and no tongue bite. Patient had multiple events at home, therefore they called the ambulance and was brought to the hospital. As per EMS flow sheet when they arrived, patient was found alert and oriented 4, laying on the couch having new onset of focal motor seizure-like activity. Patient states that in about an hour ago, it started as a tremor in her foot, patient is now having seizure-like activity from her neck down. Patient never loses consciousness, no loss of bladder control and has no postictal state. Versed IM given for seizure activity. Seizure-like activity decrease in frequency after administration of medication. Patient's vitals at the scene was blood pressure 162/90, which came up to 169/133, pulse rate 111, respirations 18, saturation 86%. Patient has been afebrile, vital stable in the hospital. Blood test shows normal CBC, normal CMP. Lactate 4.0, UA negative. CT head showed no acute intracranial process. I personally reviewed CT head, agree with the findings. EKG showed sinus rhythm. CTA of head and neck showed no evidence of dissection of the cervical internal carotid arteries or vertebral arteries or any evidence of significant stenosis at the carotid bifurcation. No evidence of intracranial high-grade stenosis or intracranial aneurysm. Venous Doppler was negative for DVT in the left leg. Patient's home medications include Crestor 20 mg and Lexapro 10 mg. Patient since yesterday had numerous seizure type spells. Patient tells me that it starts with her left arm shaking, then she opens up her legs (spread out her legs, and she showed me how the legs spread out) and then the legs shake and she tries to turn to the right side. She states that with some seizures, her legs go up. She had numerous seizure, during which most of the time she is able to respond to some extent. Postictally she is fully oriented. I witnessed mul tiple seizure-like spells and they were all of different semiology. Some of them starts with staring and then her legs shake and she tries to turn to the right side. The nurses have reported that with some seizure, her leg goes to 1 side, but the body is twisted to the other side. Most of the seizures she is answering, but couple seizures were called "grand mal" in which she was not responding. Sometimes her left arm is weak but other times they are equal. 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 She has been stressed at work. Patient's maternal grandmother has history of seizures. Nurse reported that patient travels a lot and recently came from a trip to [facility]. Review of Systems As above. Patient was complaining of some headache yesterday. Past Medical History Past Medical History: Hyperlipidemia History of Any Multi-Drug Resistant Organisms: None Reported Past Surgical History: Section Past Psychological History: Anxiety Past Alcohol Use History: None Reported Past Drug Use History: None Reported - Past Family History Mother Family Medical History: Hypertension, Myocardial Infarction (CT), Seizure Disorder Additional Family Medical History / Comment(s): AAA Medications and Allergies Home Medications Medication Instructions Recorded Confirmed Type Escitalopram [Lexapro] 10 mg PO DAILY 12/27/18 01/01/24 History Latanoprost [Latanoprost 0.005%] 1 drop BOTH EYES HS 01/01/24 01/01/24 History Rosuvastatin [Crestor] 20 mg PO DAILY 01/01/24 01/01/24 History Allergies Allergy/AdvReac Type Severity Reaction Status Date / Time No Known Allergies Allergy Verified 12/27/18 19:25 Physical Examination - Vital Signs Vital Signs: Vital Signs Temp Pulse Resp BP Pulse Ox 01/02/24 07:16 105 H 20 129/90 98 01/02/24 05:59 67 18 107/63 96 01/02/24 02:00 59 L 18 105/77 96 01/01/24 22:59 84 18 102/53 97 01/01/24 18:05 98.8 F 80 18 128/88 98 01/01/24 17:05 86 16 134/85 97 01/01/24 16:03 97.8 F 89 16 129/83 98 Intake and Output 01/01/24 01/02/24 01/02/24 22:59 06:59 14:59 Other: Weight 67.132 kg Patient is a middle aged female, who is somewhat groggy from receiving Ativan's and seizure medication. Patient does wake up, and answers appropriately. Right after the seizure patient was able to tell me that it is December 2023 and that she is in [place] in [place] and name of the current president Mr. Cai. Speech and language functions are normal. Patient can name and repeat very well. No aphasia or dysarthria. Attention, concentration is impaired due to medications and fund of knowledge is adequate. On cranial nerve examination, pupils are equal, round and reacting to light, visual day are full on confrontation, with no neglect on double simultaneous stimulation. Extraocular muscles are intact with no nystagmus. Face is symmetric, tongue protrudes to the midline. Palatal elevation and sensation normal, hearing and shoulder shrug normal, facial sensation normal. On muscle strength testing, there is no pronator drift and the strength is normal in arms and legs distally and proximally. Patient was giving decreased effort for enrollment clerk testing and hip flexion, but otherwise the strength appears equal. Deep tendon reflexes are symmetric 1 at the biceps, 1 brachioradialis, 2 at the knees, 2 ankles and plantars downgoing. No clonus. Sensory to touch is equal with no neglect on double simultaneous stimulation. Cerebellar function showed no ataxia for [id number] testing. No dysdiadochokinesia. No ataxia for [id number] testing on either side. Tone and bulk of muscles normal. Gait deferred.. On general examination, there is no carotid bruit or murmur, S1-S2 audible. Chest is clear on consultation. Abdomen is soft nontender. No organomegaly, bowel sounds present. Peripheral pulses are present. No peripheral edema. Results - Laboratory Findings CBC and BMP: 01/01/24 16:33 01/02/24 17:04 Abnormal Lab Findings: Abnormal Labs 01/01/24 01/01/24 01/01/24 16:47 17:30 18:00 Chloride 111 H Plasma Lactic Acid Rayomn 4.0 H* Total Protein 6.1 L Albumin 3.3 L Ur Specific [place] 1.039 H Assessment and Plan Assessment: * New onset seizure. Possible status epilepticus. The seizure starts with left arm and then extends to the legs. Patient has been mostly responding during the seizure and no significant postictal confusion. Clinical semiology of seizures is somewhat different each time. Some of them had pelvic thrusting. Suspect nonepileptic seizure, although epileptic seizure cannot be ruled out. EEG showed suppressed background from medication effect without any focal slowing or epileptiform activity. * Anxiety disorder Plan: * Patient has received Keppra 1500 mg in the ER yesterday. With recurrent seizure, patient was given Keppra 1500 mg after her multiple seizures in the morning. She remained seizure-free for 3 hours, but then seizure-like activity reappeared. Patient has received multiple doses of Ativan. * Start Vimpat 200 mg IV twice daily. * EEG was performed, which was mildly abnormal because of suppressed background with excessive low voltage fast frequency beta activity suggestive of benzodiazepine effect. No focal, lateralized or epileptiform activity was seen. No electrographic seizure was recorded. * Patient to be transferred to ICU. * Stat MRI of the brain with and without contrast ordered. * Patient will need continuous video EEG monitoring to evaluate for epileptic versus nonepileptic seizures. * Patient may need lumbar puncture. * Urine drug screen. * Discussed with multiple nursing staff and family members. * Thank you for the consult. Time with Patient: Greater than 30
[2024-01-02 13:54] LABS: Glucose,Whole Blood 82 mg/dL (70-110)
[2024-01-02 14:12] VITALS: TEMP 98.7
--- NOTE | 2024-01-02 16:14 | MR ---
EXAMINATION TYPE: MR brain wo/w con DATE OF EXAM: 01/02/2024 3:57 PM CLINICAL INDICATION:Female, 48 years old with history of Seizures; PHH, Seizures COMPARISON: 01/01/2024 TECHNIQUE: Multi planar, multi sequence imaging was performed through the brain including: T1, T2, In version recovery, susceptibility weighted imaging and gradient echo imaging and Diffusion weighted im aging. The patient was then given intravenous contrast and multi planar, T1 fat-saturation images wer e obtained. IV Contrast: 6.5 cc Gadavist FINDINGS: The godfrey-white junctions, ventricular system, basal cisterns appear unremarkable. Diffusion-weighted imaging shows no evidence of restricted diffusion to suggest acute/subacute infarct. Intracranial ar terial flow voids are maintained. Midline structures show no abnormality. Scattered small foci of hig h T2 signal intensity are seen within the periventricular white matter. The susceptibility weighted i mages do not reveal any evidence for micro-hemorrhage. After administration of gadolinium, no abnorma l enhancement is seen. Left frontal lobe developmental venous anomaly series and 1 image 4 9 The bone marrow signal is within normal limits. Paranasal sinuses and mastoid air cells: No significant paranasal sinus disease. Visualized orbits: Orbital contents are intact. IMPRESSION: 1. Minimal scattered white matter changes correlate for demyelination versus small vessel ischemic d isease versus sequela of headaches in the appropriate clinical setting. No abnormal postcontrast enha ncement or evidence for active demyelination. 2. Left frontal lobe developmental venous anomaly. 3. No evidence of intracranial mass, acute/subacute infarct, or abnormal enhancement.
[2024-01-02 16:25] LABS: Chol/HDL Ratio 3.09 Ratio; LDL Cholesterol,Calculated 83.7 mg/dL (0.0-131.0); VLDL Calculation 19.08 mg/dL (5.00-40.00)
[2024-01-02 17:42] LABS: African American GFR (CKD) >90 (>60 ml/min/1.73 sqM); Anion Gap 4 mmol/L; Blood Urea Nitrogen 5 mg/dL (7-17); Calcium 8.6 mg/dL (8.4-10.2); Carbon Dioxide 23 mmol/L (22-30); Chloride 111 mmol/L (98-107); Glucose 83 mg/dL (74-99); Non-African American GFR(CKD) >90 (>60 ml/min/1.73 sqM); Potassium 3.9 mmol/L (3.5-5.1); Sodium 138 mmol/L (137-145)
[2024-01-02 18:40] VITALS: BP 111/78; PULSE 66; RESP 22
[2024-01-02] MEDS ORDERED: levETIRAcetam IV 500 MG/5 ML VIAL IVP SCH (21:00)
--- NOTE | 2024-01-02 22:10 | EEG ---
ELECTROENCEPHALOGRAM REPORT PREAMBLE: This is a 48-year-old female who came to the hospital for seizures affecting her left side of the body. CURRENT MEDICATIONS: 1. Aspirin. 2. Lipitor. 3. Keppra. 4. Ativan. 5. Zofran. EEG FINDINGS: This is a 21-channel digital EEG recorded with video component, utilizing 10/20 international system with referential and bipolar montages. Background consists of somewhat suppressed, low-voltage fast frequency beta activity seen in bihemispheric region. Background does not seem to be clearly reactive to eye opening or closing. Different stages of sleep were not seen. No focal or generalized epileptiform activity was seen. Photic stimulation was not performed. EKG channel showed no obvious arrhythmia. IMPRESSION: This is an abnormal EEG due to slightly suppressed background with presence of excessive amount of low-voltage fast frequency activity, suggestive of medication effect. No focal, lateralized, or epileptiform activity was seen. MMODL / IJN: [id number] /
--- NOTE | 2024-01-03 00:25 | P.DS ---
Providers Date of admission: 01/01/24 19:02 Attending physician: Fay Thomas Consults: 01/01/24 19:01 Consult Physician Routine Consulting Provider: Darby Mason Consult Reason/Comments: Seizure Do you want consulting provider notified?: Already Contacted Primary care physician: Charly Blount DO Hospital Course: Addendum: ((Please refer to progress note from today for more details)) Patient continued to have recurrent seizures similar to presentation. Neurologist evaluated the patient and he decided to transfer the patient to the ICU And I discussed the case with the neurologist differential diagnosis of this new onset seizure is pseudoseizure but given the recurrent nature of the seizure with status epilepticus also the differential. Neurologist recommended to transfer the patient blood pressure care center for availability of EEG which is not available at this facility. I contacted [facility] and talk to the transfer team and they cannot accept the patient for transfer. Patient is medically stable to be transferred in guarded prognosis Patient Condition at Discharge: Stable Plan - Discharge Summary Discharge Rx Participant: No New Discharge Prescriptions: No Action Escitalopram [Lexapro] 10 mg PO DAILY Rosuvastatin [Crestor] 20 mg PO DAILY Latanoprost [Latanoprost 0.005%] 1 drop BOTH EYES HS Discharge Medication List Escitalopram [Lexapro] 10 mg PO DAILY 12/27/18 [History] Latanoprost [Latanoprost 0.005%] 1 drop BOTH EYES HS 01/01/24 [History] Rosuvastatin [Crestor] 20 mg PO DAILY 01/01/24 [History] Follow up Appointment(s)/Referral(s): Charly Blount DO [Primary Care Provider] - 1-2 days Patient Instructions/Handouts: Seizure/Epilepsy Discharge Instructions & Follow-Up Discharge Disposition: OTHER INSTITUTION NOT DEFINED
== END 2024-01-02 18:58 | disposition short-term general hospital (02) | DRG 101 ==
LOC: EC 16:00 → 3SCARD 19:02 → 2SICU 01-02 13:42
PROVIDERS: ADMIT Hospitalist; ATTEND Hospitalist
PROC: 4A10X4Z Monitoring of Central Nervous Electrical Activity, External Approach (ICD-10-PCS; principal; 2024-01-02)
DX: G40.909 Epilepsy, unspecified, not intractable, without status epilepticus (principal); E78.5 Hyperlipidemia, unspecified; F41.9 Anxiety disorder, unspecified; Z79.899 Other long term (current) drug therapy; Z82.0 Family history of epilepsy and other diseases of the nervous system; Z79.82 Long term (current) use of aspirin; Z82.49 Family history of ischemic heart disease and other diseases of the circulatory system
CPT/HCPCS: 36415; 70450; 70496; 70498; 70553; 80048; 80053; 80061; 81003; 83605; 83735; 85025; 93005; 95819; 96361; 96374; 96375; 96376; 99291